=== PATIENT | male | born 1990 | race Two or more races ===

== ENCOUNTER 2019-09-15 23:20 | Emergency (ER) | payer SELFPAY ==
[~2019-09-15] VITALS: Ht 167.6 cm; Wt 68.0 kg
[2019-09-15 23:33] VITALS: BP 135/85
--- NOTE | 2019-09-15 23:36 | NUR ---
ED Nurse Note: Patient brought in by ambulance d/t found on the streets severely intoxicated ETOH use. Patient aao x 1 and ambulatory. Patient arousable by shaking but drowsy and sleeping during assessment. Patient stable during assessment.
[2019-09-16 01:58] VITALS: BP 138/78
--- NOTE | 2019-09-16 01:59 | NUR ---
ED Nurse Note: Reassessed patient, patient sleeping in bed, stable condition. No acute distress noted.
--- NOTE | 2019-09-16 02:32 | Emergency Room Report ---
History of Present Illness General Chief Complaint: Alcohol Intoxication Source: Patient Present Illness HPI Is a 29-year-old male brought in by EMS with complaint of alcohol intoxication. He was staggering on the street and is admitted to drinking heavily tonight. Bystander called 911. There was no trauma the patient. EMS brought him here. Patient has no trauma. He admits to drinking alcohol. Afterward he promptly fell asleep so history is limited. Allergies: Coded Allergies: UNABLE TO ASSESS (Unverified , 09/15/19) Patient History Past Medical History: see triage record, old chart reviewed Past Surgical History: unable to obtain Pertinent Family History: unable to obtain Social History: Reports: alcohol use Immunizations: other Reviewed Nursing Documentation: PMH: Agreed; PSxH: Agreed Review of Systems All Other Systems: limited - Secondary to intoxication Physical Exam Vital Signs Date Time Temp Pulse Resp B/P (MAP) Pulse Ox O2 Delivery O2 Flow Rate FiO2 09/15/19 23:21 98.2 75 16 131/80 (97) 99 Room Air Sp02 EP Interpretation: reviewed, normal General Appearance: well appearing, no apparent distress, other - Very intoxicated Head: normocephalic, atraumatic Eyes: bilateral eye PERRL, bilateral eye EOMI ENT: hearing grossly normal, normal pharynx Neck: full range of motion, supple, no meningismus Respiratory: chest non-tender, lungs clear, normal breath sounds Cardiovascular #1: regular rate, rhythm, no murmur Gastrointestinal: normal bowel sounds, non tender, no mass, no organomegaly, no bruit, non-distended Musculoskeletal: back normal, normal range of motion, gait/station normal Psychiatric: mood/affect normal Medical Decision Making Diagnostic Impression: Primary Impression: Acute alcoholic intoxication Qualified Codes: F10.920 - Alcohol use, unspecified with intoxication, uncomplicated ER Course Patient with alcohol intoxication. No trauma to warrant x-ray or CT scan. No focal deficit. Will observe until clinical sobriety. Will discharge home afterward. Last Vital Signs Date Time Temp Pulse Resp B/P (MAP) Pulse Ox O2 Delivery O2 Flow Rate FiO2 09/16/19 01:58 78 16 138/78 96 Room Air 09/15/19 23:33 98.2 Status: improved Disposition: HOME, SELF-CARE Condition: Stable Referrals: NOT CHOSEN IPA/MD,REFERRING (PCP) Patient Instructions: Alcohol Intoxication, [id number] Additional Instructions: Stop drinking alcohol. Follow-up with your doctor in 7 days. Return if symptoms worsen. Francisco Javier Adam MD Sep 16, 2019 02:32
[2019-09-16 03:52] VITALS: BP 133/75
[2019-09-16 05:14] VITALS: BP 135/82
--- NOTE | 2019-09-16 05:14 | NUR ---
ER DISCHARGE NOTE: Patient is cleared to be discharged per ERMD, pt is aox4, on room air, with stable vital signs. pt was given dc instructions, pt was able to verbalize understanding, pt id band removed. pt is able to ambulate with steady gait. pt took all belongings. pt stable upon discharge.
== END 2019-09-16 05:14 | disposition home or self-care (01) ==
LOC: EDBD 23:20 → EMR 23:36
DX: F10.920 Alcohol use, unspecified with intoxication, uncomplicated (principal)
CPT/HCPCS: 99282